=== PATIENT | male | born 1990 | race Caucasian/White ===

== ENCOUNTER 2017-08-03 02:51 | Emergency (ER) | payer OTHER ==
[~2017-08-03] VITALS: Ht 180.3 cm; Wt 117.9 kg
[2017-08-03 02:55] VITALS: BP_SYST 107
[2017-08-03 04:00] VITALS: BP_SYST 117
== END 2017-08-03 04:00 ==
LOC: SED 02:51
DX: Z02.89 Encounter for other administrative examinations (principal); V89.2XXA Person injured in unspecified motor-vehicle accident, traffic, initial encounter; Y93.89 Activity, other specified; Y92.89 Other specified places as the place of occurrence of the external cause; Y99.8 Other external cause status
CPT/HCPCS: 99283